=== PATIENT | female | born 1960 | race Caucasian/White ===

== ENCOUNTER 2019-01-23 23:29 | Emergency (ER) | payer BC ==
[2019-01-24] MEDS ORDERED: HYDROmorphone 1 MG/ML Syringe IM ONE ×2 (00:53→02:11)
[2019-01-24] MEDS ORDERED: Ondansetron 4 MG Tab.DIS PO ONE (00:53)
--- NOTE | 2019-01-24 01:05 | CRLCR ---
Indication: Wrist pain and deformity Technique: Three views left wrist Comparison: None Findings/impression: There is a comminuted, intra-articular fracture of the distal left radius with dorsal subluxation of the distal fracture fragments. Moderate surrounding soft tissue swelling. There is also a minimally displaced fracture of the ulnar styloid process. Remainder of the osseous structures appear intact. Dictated by Adelia Telles MD @ Jan 24 2019 1:02AM Signed by Dr. Adelia Telles @ Jan 24 2019 1:04AM [facility]
--- NOTE | 2019-01-24 01:12 | EDM.PDOC ---
ED HPI GENERAL MEDICAL PROBLEM - General Chief Complaint: Upper Extremity Injury/Pain Stated Complaint: BROKE LEFT WRIST? Time Seen by Provider: 01/24/19 01:00 Source of Information: Reports: Patient History Limitations: Reports: No Limitations - History of Present Illness INITIAL COMMENTS - FREE TEXT/NARRATIVE: chief complaint: broken wrist This is a 58 year old female from [place], [place]., here on vacation, has been drinking all day, slipped and fell injuring her left wrist at 11:30 pm. reports her left knee is sore but is able to walk and move knee with minor pain. fall at 23:30 today last alcohol at 11 pm this evening. Onset: Sudden Duration: Hour(s): Location: Reports: Upper Extremity, Left Quality: Reports: Sharp Severity: Severe Improves with: Reports: Immobilization Worsens with: Reports: Movement Context: Reports: Other (fall) Associated Symptoms: Reports: No Other Symptoms left wrist Pain Score (Numeric/FACES): 8 - Related Data Allergies Allergy/AdvReac Type Severity Reaction Status Date / Time No Known Allergies Allergy Verified 01/24/19 00:27 Home Meds: Home Meds NK [No Known Home Meds] 01/24/19 [History] Past Medical History [employer] History: Reports: - Past Surgical History Female Surgical History: Reports: Section Social & Family History - Tobacco Use Smoking Status *Q: Current Every Day Smoker Years of Tobacco use: 35 Packs/Tins Daily: 0.2 - Caffeine Use Caffeine Use: Reports: Coffee - Alcohol Use Days Per Week of Alcohol Use: 3 Number of Drinks Per Day: 3 Total Drinks Per Week: 9 - Recreational Drug Use Recreational Drug Use: No - Living Situation & Occupation Living situation: Reports: Occupation: Employed (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 lives with family in [place], [place]. has two children) Review of Systems - Review of Systems Review Of Systems: See Below Constitutional: Reports: No Symptoms Eyes: Reports: No Symptoms Ears: Reports: No Symptoms Nose: Reports: No Symptoms Mouth/Throat: Reports: No Symptoms Respiratory: Reports: No Symptoms, Other (social smoker. ) Cardiovascular: Reports: No Symptoms GI/Abdominal: Reports: No Symptoms, Other (hx of 2 c-sections) Genitourinary: Reports: No Symptoms Musculoskeletal: Reports: Arm Pain (left wrist pain), Joint Swelling (left wrist with pain and deformity) Skin: Reports: Bruising Neurological: Reports: No Symptoms Psychiatric: Reports: No Symptoms ED EXAM, GENERAL - Physical Exam Exam: See Below Exam Limited By: No Limitations General Appearance: Alert, Mild Distress Eye Exam: Bilateral Eye: EOMI, PERRL Ears: Normal External Exam Nose: Normal Inspection Throat/Mouth: Normal Inspection, Normal Lips Head: Atraumatic, Normocephalic Neck: Normal Inspection, Supple, Non-Tender, Full Range of Motion Respiratory/Chest: No Respiratory Distress, Lungs Clear, Normal Breath Sounds, No Accessory Muscle Use, Chest Non-Tender Cardiovascular: Regular Rate, Rhythm, No Murmur GI/Abdominal: Normal Bowel Sounds, Soft, Non-Tender (Female) Exam: Deferred Rectal (Female) Exam: Deferred Back Exam: Normal Inspection Extremities: Arm Pain (left wrist with deformity. bruising noted along the forearm, radial pulse intact and equal to right .) Neurological: Alert, Oriented, CN II-XII Intact, Normal Cognition, Normal Gait, Normal Reflexes, No Motor/Sensory Deficits Psychiatric: Normal Affect, Normal Mood, Tearful Skin Exam: Warm, Dry, Intact, Ecchymosis (forearm) Lymphatic: No Adenopathy Course - Vital Signs Last Recorded V/S: Last Vital Signs Temp 36.5 C 01/24/19 00:29 Pulse 82 01/24/19 00:29 Resp 20 01/24/19 00:29 BP 152/95 H 01/24/19 00:29 Pulse Ox 95 01/24/19 00:29 - Orders/Labs/Meds Orders: Active Orders 24 hr Category Date Time Status Wrist Comp Min 3V Lt [CR] Stat Exams 01/24/19 01:25 Ordered Meds: Medications Discontinued Medications Generic Name Dose Route Start Last Admin Trade Name Freq PRN Reason Stop Dose Admin Hydromorphone HCl 1 mg 01/24/19 00:53 01/24/19 00:59 Dilaudid IM 01/24/19 00:54 1 mg ONETIME ONE Administration Lidocaine HCl 20 ml 01/24/19 01:24 Xylocaine 1% INJECT 01/24/19 01:25 ONETIME ONE Ondansetron HCl 4 mg 01/24/19 00:53 01/24/19 01:00 Zofran Odt PO 01/24/19 00:54 4 mg ONETIME ONE Administration - Re-Assessments/Exams Free Text/Narrative Re-Assessment/Exam: 01/24/19 01:51 radiologist: there is a comminuted. intra-articular fracture of the distal left radius with dorsal subluxation of the distal fracture fragments. Moderate surrounding soft tissue swelling. there is also a minimally displace fracture of the ulnar styloid process. remainder of the osseous structures appear intact. consult with Orthopedic at [place], [place]. -advise to reduce and place in sugar tong splint -have Mrs. Cabrera go to ER at [facility] for surgery. She is to be at hospital at 0900. -January 24, 2019 at 0900 Orthopedic Surgery for left wrist fracture -keep NPO til surgery lwft wrist fracture reduced using the [place] Block was performed by Dr. Newton post reduction xray improved alignment. and Mrs. Cabrera verbalize understanding of instructions. Departure - Departure Time of Disposition: 02:00 Disposition: Home, Self-Care 01 Condition: Good Clinical Impression: Fracture of radius and ulna - Discharge Information *PRESCRIPTION DRUG MONITORING PROGRAM REVIEWED*: Not Applicable *COPY OF PRESCRIPTION DRUG MONITORING REPORT IN PATIENT YENIFER: Not Applicable Instructions: Closed Reduction for Wrist or Forearm Referrals: PCP,None [Primary Care Provider] - Forms: ED Department Discharge Care Plan Goals: Colles fracture of left wrist -elevated -may apply ice for comfort -keep in splint -may take pain pill with a sip of water for pain contrl keep nothing to eat or drink now surgery scheduled for 0900 prep time. go to [facility] in [facility]. Go to ER Desk, tell Person , you are here for Orthopedic Surgery at 0900. The Orthopedic Medical Provider, Elicia Ayoub NP will be expecting you. Xaannabella have been sent to [facility] for your surgery today. - Problem List & Annotations (1) Fracture of radius and ulna SNOMED Code(s): 83265859 Code(s): S52.90XA - UNSP FRACTURE OF UNSP FOREARM, INIT FOR CLOS FX; S52.209A - UNSP FRACTURE OF SHAFT OF UNSP ULNA, INIT FOR CLOS FX Status: Acute Priority: High Current Visit: Yes Qualifiers: Encounter type: initial encounter Fracture type: closed Laterality: left Qualified Code(s): S52.92XA - Unspecified fracture of left forearm, initial encounter for closed fracture; S52.202A - Unspecified fracture of shaft of left ulna, initial encounter for closed fracture - Problem List Review Problem List Initiated/Reviewed/Updated: Yes - My Orders Last 24 Hours: My Active Orders 01/24/19 01:25 Wrist Comp Min 3V Lt [CR] Stat - Assessment/Plan Last 24 Hours: My Active Orders 01/24/19 01:25 Wrist Comp Min 3V Lt [CR] Stat Plan: Colles fracture of left wrist -elevated -may apply ice for comfort -keep in splint -may take pain pill with a sip of water for pain contrl keep nothing to eat or drink now surgery scheduled for 0900 prep time. go to [facility] in [facility]. Go to ER Desk, tell Person , you are here for Orthopedic Surgery at 0900. The Orthopedic Medical Provider, Elicia Ayoub NP will be expecting you. Yudy have been sent to [facility] for your surgery today.
[2019-01-24] MEDS ORDERED: Lidocaine 1% 20 ML MDV INJECT ONE (01:24)
--- NOTE | 2019-01-24 02:36 | CRLCR ---
Indication: Post reduction Technique: Two views left wrist Comparison: January 24, 2019 at 12:46 a.m. Findings/Impression: : Overlying casting material obscures fine bony detail. Intra-articular, comminuted fracture of the distal left radius is again identified. Interval improvement in alignment of the fracture fragments. Minimally displaced ulnar styloid process fracture better seen on the prior study. Dictated by Adelia Telles MD @ Jan 24 2019 2:26AM Signed by Dr. Adelia Telles @ Jan 24 2019 2:34AM
== END 2019-01-24 02:26 | disposition home or self-care (01) ==
LOC: JP.ED 23:29
DX: S52.502A Unspecified fracture of the lower end of left radius, initial encounter for closed fracture (principal); S52.612A Displaced fracture of left ulna styloid process, initial encounter for closed fracture; F17.210 Nicotine dependence, cigarettes, uncomplicated; W01.0XXA Fall on same level from slipping, tripping and stumbling without subsequent striking against object, initial encounter
CPT/HCPCS: 25605; 73100; 73110; 96372; 99283; A9270; J1170; J2001